=== PATIENT | female | born 1960 | race Caucasian/White ===

== ENCOUNTER 2018-02-01 15:34 | Emergency (ER) | payer BC, OTHER ==
[2018-02-01 15:58] LABS: APPEARANCE,URINE CLOUDY (CLEAR); BASOPHILS % (AUTO) 0.6 % (0.0-5.0); BILIRUBIN,URINE MODERATE (NEGATIVE); COLOR,URINE YELLOW (YELLOW); EOSINOPHILS % (AUTO) 0.1 % (0.0-8.0); GLUCOSE, URINE (UA) NEGATIVE (NEGATIVE); HEMATOCRIT 49.4 % (36-48); KETONES,URINE 40 mg/dL (NEGATIVE); LEUKOCYTE ESTERASE ,URINE NEGATIVE (NEGATIVE); LYMPHOCYTES % (AUTO) 8.7 % (21.0-51.0); MEAN CORPUSCULAR HEMOGLOBIN 34.2 pg (27.0-33.0); MEAN CORPUSCULAR HGB CONC 35.1 g/dL (32.0-36.0); MEAN CORPUSCULAR VOLUME 97.5 fL (79-99); MONOCYTES % (AUTO) 9.8 % (3.0-13.0); NEUTROPHILS % (AUTO) 80.8 % (40.0-77.0); NITRATE,URINE NEGATIVE (NEGATIVE); NUCLEATED RED BLOOD CELLS 0.1 % (0.0-0.19); OCCULT BLOOD,URINE MODERATE (NEGATIVE); PLATELET COUNT (AUTO) 279 K/uL (130-400); PROTEIN,URINE 30 (NEGATIVE); RED BLOOD CELL COUNT(AUTO) 5.07 MIL/uL (4.00-5.50); RED CELL DISTRIBUTION WIDTH 13.3 % (11.0-15.5); UROBILINOGEN,URINE 0.2 mg/dL (0.2-1.0); WHITE BLOOD COUNT (AUTO) 10.6 K/uL (4.8-10.8)
[2018-02-01 16:09] LABS: BACTERIA,URINE Few /HPF (None Seen); CREATININE 1.1 mg/dL (0.5-1.5); MUCUS,URINE Few LPF (None Seen); POTASSIUM 4.7 mmol/L (3.5-5.1); SQUAMOUS EPITHELIAL CELL,UR Moderate /HPF (0-2)
[2018-02-01 16:14] LABS: ALBUMIN 3.6 g/dL (3.5-5.0); BILIRUBIN,TOTAL 0.5 mg/dL (0.2-1.0)
[2018-02-01] MEDS ORDERED: FAMOTIDINE/PF 20 MG/2 ML VIAL IV ONE (16:25)
[2018-02-01] MEDS ORDERED: HYOSCYAMINE SULFATE 0.125 MG TAB.SUBL SL ONE (16:25)
[2018-02-01 19:44] LABS: OCCULT BLOOD STOOL SINGLE ONLY POSITIVE (NEGATIVE)
== END 2018-02-01 21:23 | disposition home or self-care (01) ==
LOC: EDH 15:34
DX: A09 Infectious gastroenteritis and colitis, unspecified (principal); E86.0 Dehydration; F12.10 Cannabis abuse, uncomplicated; Z88.0 Allergy status to penicillin; Z72.0 Tobacco use
CPT/HCPCS: 36415; 71046; 74176; 80053; 81001; 82270; 83690; 85025; 87046; 87324; 93005; 96361; 96365; 99284; J3490

== ENCOUNTER 2024-02-29 11:16 | Emergency (ER) | payer BC ==
[~2024-02-29] VITALS: Ht 157.5 cm; Wt 37.6 kg
--- NOTE | 2024-02-29 11:39 | ERN ---
ED Note History of Present Illness Stated Complaint: BLOOD IN URINE Chief Complaint: Blood in Urine: Time Seen by MD: 11:32 Dictation: PATIENT IS A 63-YEAR-OLD FEMALE HERE SENT BY HER PRIMARY CARE DOCTOR WITH COMPLAINTS OF GROSSLY HEMATURIA URINE ONSET YESTERDAY. NO FEVER NO CHILLS NO NAUSEA VOMITING. SHE STATES HER DOCTOR HAS BEEN TREATING HER FOR UTI WITH CEPHALEXIN AND INJECTIONS AT HER OFFICE. SHE WAS SENT TO THE EMERGENCY ROOM TODAY BECAUSE SHE WAS CONCERNED FOR SEPSIS ACCORDING TO THE PRIMARY CARE DOCTOR. Allergies: Coded Allergies: No Known Drug Allergies (Verified Allergy, Unknown, 02/29/24) Penicillins (Unverified Allergy, Unknown, 02/29/24) Past Medical History Past Medical History: No Pertinent History Surgical History: None History: Not Applicable RN Note Reviewed/Agreed w/PFSH: Yes Review of System Dictation CONSTITUTIONAL: NEGATIVE EXCEPT FOR HPI HEAD/FACE: NEGATIVE EXCEPT FOR HPI EENT: NEGATIVE EXCEPT FOR HPI RESPIRATORY: NEGATIVE EXCEPT FOR HPI GASTROINTESTINAL/ABDOMINAL: NEGATIVE EXCEPT FOR HPI GENITOURINARY: NEGATIVE EXCEPT FOR HPI HEMATURIA MUSCULOSKELETAL: NEGATIVE EXCEPT FOR HPI INTEGUMENTARY: NEGATIVE EXCEPT FOR HPI NEUROLOGICAL/PSYCH: NEGATIVE EXCEPT FOR HPI HEMATOLOGIC/LYMPHATIC: NEGATIVE EXCEPT FOR HPI ALL SYSTEMS NEGATIVE, EXCEPT NOTED ABOVE. 13 POINT REVIEW OF SYSTEMS ASSESSED AND ALL NEGATIVE EXCEPT FOR ABOVE. Initial Vital Sign VS Vital Signs Date Time Temp Pulse Resp B/P (MAP) Pulse Ox O2 Delivery O2 Flow Rate FiO2 02/29/24 11:30 97.5 111 18 114/72 99 Room Air Physical Exam Dictation VITAL SIGNS REVIEWED GENERAL APPEARANCE: ALERT, ORIENTED X 3, MILD ACUTE DISTRESS, WELL DEVELOPED, NOURISHED. HEAD AND FACE: NON-TRAUMATIC. EYES: PERRL, PINK CONJUNCTIVAS, EYELID NO TRAUMA, ANTERIOR CHAMBER WITH ARCUS SENILIS. EARS: PINNAS INTACT AND NO SIGNS OF TRAUMA OR ERYTHEMA EAR CANALS CLEAR AND NO DISCHARGE TM NO ERYTHEMA NOSE: NO DISCHARGE, NO BLEEDING. OROPHARYNX: MOUTH NORMAL, TONGUE PINK, PHARYNX CLEAR,NO ERYTHEMA, TONSILS NO EXUDATES, NO ABSCESSES NOTED, MUCOUS MEMBRANE MOIST NECK: SUPPLE, NON-TENDER, NO THYROMEGALY, NO MASSES, NO JVD, NO BRUITS BREAST:DEFERRED CHEST:NO TENDERNESS, NO CREPITUS, NO PARADOXICAL MOVEMENT, NO RETRACTIONS LUNGS:CLEAR, WELL-VENTILATED, SYMMETRIC, NO RALES, NO WHEEZING, NO RHONCHI, NO STRIDOR, GOOD BREATH SOUNDS BILATERALLY HEART: REGULAR RATE, REGULAR RHYTHM, NO MURMUR, NO GALLOPS VASCULAR: NO PERIPHERAL EDEMA, ABDOMEN: SOFT, POSITIVE BOWEL SOUNDS, NONDISTENDED, NO GUARDING, NONTENDER, NO REBOUND, NO MASSES NO HEPATOMEGALY, NO SPLENOMEGALY, NO GARCIA'S SIGN, NO HERNIAS. RECTAL: DEFERRED GENITAL: DEFERRED NEUROLOGICAL: NORMAL SPEECH, MOTOR FUNCTION INTACT, SENSORY FUNCTION INTACT MUSCULOSKELETAL: NECK NONTENDER, FULL RANGE OF MOTION, BACK NONTENDER, FULL RANGE OF MOTION, EXTREMITIES: NONTENDER, FULL RANGE OF MOTION SKIN: COLOR PINK, DRY, NO TURGOR, NO RASH, NO LACERATIONS, NO ABRASIONS, NO CONTUSIONS. LYMPHATIC: DEFERRED Results (Laboratory/Radiology) Laboratory/Radiology Laboratory Tests Test 02/29/24 11:42 02/29/24 11:52 Urine Color RED (YELLOW) Urine Appearance CLOUDY (CLEAR) H Urine pH 6.5 (5.0-8.0) Urine Specific [place]ill 1.007 (1.001-1.031) Urine Protein 200 mg/dL (NEGATIVE) H Urine Glucose (UA) NEGATIVE mg/dL (NEGATIVE) Urine Ketones NEGATIVE mg/dL (NEGATIVE) Urine Occult Blood LARGE (NEGATIVE) H Urine Nitrate NEGATIVE (NEGATIVE) Urine Bilirubin NEGATIVE mg/dL (NEGATIVE) Urine Urobilinogen 0.2 mg/dL (0.2-1.0) Urine Leukocyte Esterase 25 Traci/uL (NEGATIVE) H Urine RBC TNTC /HPF (0-1) H Urine WBC TNTC /HPF (0-1) H Urine WBC Clumps (Auto) MANY /HPF (0-1) Urine Other Crystals (Auto) 32 /HPF (None Seen) Urine Bacteria FEW /HPF (None Seen) Urine Other Casts 18 /LPF (None Seen) Urine Yeast FEW /HPF (None Seen) White Blood Count 7.7 K/uL (4.8-10.8) Red Blood Count 3.93 MIL/uL (4.00-5.50) L Hemoglobin 13.3 g/dL (12.0-16.0) Hematocrit 38.8 % (36-48) Mean Corpuscular Volume 98.7 fL (79-99) Mean Corpuscular Hemoglobin 33.8 pg (27.0-33.0) H Mean Corpuscular Hemoglobin Concent 34.3 g/dL (32.0-36.0) Red Cell Distribution Width 12.8 % (11.0-15.5) Platelet Count 283 K/uL (130-400) Mean Platelet Volume 9.4 fL (7.5-10.5) Immature Granulocyte % (Auto) 0.3 % (0-1) Neutrophils (%) (Auto) 66.7 % (40.0-77.0) Lymphocytes (%) (Auto) 26.5 % (21.0-51.0) Monocytes (%) (Auto) 5.5 % (3.0-13.0) Eosinophils (%) (Auto) 0.3 % (0.0-8.0) Basophils (%) (Auto) 0.7 % (0.0-5.0) Neutrophils # (Auto) 5.1 K/uL (1.8-7.7) Lymphocytes # (Auto) 2.0 K/uL (1.0-4.8) Monocytes # (Auto) 0.4 K/uL (0.1-1.0) Eosinophils # (Auto) 0.02 K/uL (0.00-0.70) Basophils # (Auto) 0.05 K/uL (0.00-0.20) Absolute Immature Granulocyte (auto 0.02 K/uL (0-1) Nucleated Red Blood Cells 0.0 % (0.0-0.19) Sodium Level 138 mmol/L (136-145) Potassium Level 3.4 mmol/L (3.5-5.1) L Chloride Level 101 mmol/L (101-111) Carbon Dioxide Level 31 mmol/L (21-32) Blood Urea Nitrogen 11 mg/dL (7-18) Creatinine 0.7 mg/dL (0.5-1.0) Glomerular Filtration Rate Calc 98 mL/min (>90) Random Glucose 119 mg/dL (70-105) H Lactic Acid Level 1.6 mmol/L (0.8-2.5) Total Calcium 8.6 mg/dL (8.5-10.1) Labs Reviewed?: Yes ED Course ED Course Orders Procedure Category Date Status Time Cbc With Differential LAB 02/29/24 Complete 11:37 Blood Cult GARCIA 02/29/24 In Process 11:37 Urinalysis Profile LAB 02/29/24 Complete 11:37 Lactic Acid LAB 02/29/24 Complete 11:37 Basic Metabolic Panel LAB 02/29/24 Complete 11:37 Culture Urine GARCIA 02/29/24 In Process 12:41 Levofloxacin 750mg PHA 02/29/24 Complete Tab (Levaquin 750mg T 12:44 Phenazopyridine Hcl PHA 02/29/24 Complete 200 Mg Tab (Pyridium 13:00 Potassium Bicarb/Cit PHA 02/29/24 Verified Ac 25meq (K-Lyte Ta 14:30 Current Medications Medications (Trade) Dose Ordered Sig/Aydee Route PRN Reason Start Time Stop Time Status Last Admin Dose Admin Levofloxacin (LEvaquIN 750MG TAB) 750 mg ONCE STAT PO 02/29/24 12:44 02/29/24 12:46 DC 02/29/24 13:05 Phenazopyridine HCl (PYRIdium HCL 200 MG TAB) 200 mg ONCE ONCE PO 02/29/24 13:00 02/29/24 13:01 DC 02/29/24 13:05 Vital Signs Date Time Temp Pulse Resp B/P (MAP) Pulse Ox O2 Delivery O2 Flow Rate FiO2 02/29/24 11:30 97.5 111 18 114/72 99 Room Air 1400/PATIENT HEMODYNAMICALLY STABLE NO SIGNS OF SEPSIS. PATIENT WILL BE DISCHARGED HOME ON LEVAQUIN AND PYRIDIUM INSTRUCTED TO FOLLOW UP WITH UROLOGIST IN THE NEXT 2-3 DAYS CALL FOR AN APPOINTMENT. Medical Decision Making MDM MEDICAL DISCHARGE MAKING BASED ON BASIC LABS AND URINALYSIS. NO ELEVATED LACTIC ACID, WHITE COUNT NORMAL. PATIENT WAS BE TREATED FOR ACUTE CYSTITIS WITH HEMATURIA WITH LEVAQUIN AND PYRIDIUM ADDITIONALLY POTASSIUM 3.4, WE WILL REPLACE. PATIENT REFERRED TO UROLOGY AND WE WILL BE DISCHARGED HOME WITH LEVAQUIN DX & DISP Disposition: Discharge Departure Impression: Primary Impression: Acute cystitis with hematuria Additional Impression: Hypokalemia Condition: Stable Scripts Phenazopyridine HCl (Pyridium) 200 Mg Tab 1 TAB PO TID for urinary discomfort for 3 Days, #9 TAB 0 Refills after food Prov: LAZARO CERNA AQUATIC PHYSIOTHERAPIST 02/29/24 Levofloxacin (Levofloxacin) 500 Mg Tablet 1 TAB PO DAILY for 10 Days, #10 TAB 0 Refills Prov: LAZARO CERNA AQUATIC PHYSIOTHERAPIST 02/29/24 Additional Instructions: FOLLOW-UP WITH PRIMARY CARE PROVIDER IN 1 TO 2 DAYS. TAKE MEDICATIONS DIRECTED HERE IN THE EMERGENCY ROOM. OKAY TO CONTINUE HOME MEDICATIONS UNLESS OTHERWISE DISCUSSED DURING YOUR VISIT IN THE EMERGENCY ROOM TODAY. RETURN TO YOUR NEAREST EMERGENCY ROOM IF SYMPTOMS WORSEN OR IF THERE IS NO IMPROVEMENT. CALL 911 IF YOU NEED IMMEDIATE ASSISTANCE. TAKE TYLENOL OR MOTRIN [id number] NEEDED AND IF NO CONTRAINDICATIONS ARE PRESENT. INCREASE ORAL HYDRATION. A WOUND CULTURE OR URINE CULTURE WAS ORDERED HERE IN THE EMERGENCY ROOM DEPARTMENT PLEASE FOLLOW-UP WITH PRIMARY CARE PROVIDER AND ADVISE THEM TO GET REPEAT PORTS FROM OUR FACILITY. IF YOU HAD ANY LISA WRAP/SPLINTS THAT WERE APPLIED HERE, PLEASE DO NOT REMOVE THEM UNTIL YOU SEE YOUR PRIMARY CARE OR SPECIALTY. TAKE ANTIBIOTICS DIRECTED UNTIL GONE, INCREASE YOUR WATER INTAKE. REMEMBER THE PYRIDIUM WILL TURN YOUR URINE ORANGE RED. CALL UROLOGIST FOR APPOINTMENT IN THE NEXT 1-2 DAYS. Referrals: SELF,REFERRAL (PCP) DC TODD MD Time of Disposition: 14:03 I have reviewed the case, and I agree with, Diagnosis and Plan LAZARO CERNA NP Feb 29, 2024 11:39
[2024-02-29 12:04] LABS: BASOPHILS # (AUTO) 0.05 K/uL (0.00-0.20); BASOPHILS % (AUTO) 0.7 % (0.0-5.0); EOSINOPHILS # (AUTO) 0.02 K/uL (0.00-0.70); EOSINOPHILS % (AUTO) 0.3 % (0.0-8.0); HEMATOCRIT 38.8 % (36-48); IMMATURE GRANULOCYTE ABSOLUTE 0.02 K/uL (0-1); LYMPHOCYTES % (AUTO) 26.5 % (21.0-51.0); MEAN CORPUSCULAR HEMOGLOBIN 33.8 pg (27.0-33.0); MEAN CORPUSCULAR HGB CONC 34.3 g/dL (32.0-36.0); MEAN CORPUSCULAR VOLUME 98.7 fL (79-99); MONOCYTES # (AUTO) 0.4 K/uL (0.1-1.0); MONOCYTES % (AUTO) 5.5 % (3.0-13.0); NEUTROPHILS # (AUTO) 5.1 K/uL (1.8-7.7); NEUTROPHILS % (AUTO) 66.7 % (40.0-77.0); PLATELET COUNT (AUTO) 283 K/uL (130-400); RED BLOOD CELL COUNT(AUTO) 3.93 MIL/uL (4.00-5.50); RED CELL DISTRIBUTION WIDTH 12.8 % (11.0-15.5); WHITE BLOOD COUNT (AUTO) 7.7 K/uL (4.8-10.8)
[2024-02-29 12:18] LABS: CREATININE 0.7 mg/dL (0.5-1.0); POTASSIUM 3.4 mmol/L (3.5-5.1)
[2024-02-29 12:36] LABS: APPEARANCE,URINE CLOUDY (CLEAR); BILIRUBIN,URINE NEGATIVE (NEGATIVE); COLOR,URINE RED (YELLOW); GLUCOSE, URINE (UA) NEGATIVE (NEGATIVE); KETONES,URINE NEGATIVE (NEGATIVE); LEUKOCYTE ESTERASE ,URINE 25 Leu/uL (NEGATIVE); NITRATE,URINE NEGATIVE (NEGATIVE); OCCULT BLOOD,URINE LARGE (NEGATIVE); PH,URINE 6.5 (5.0-8.0); PROTEIN,URINE 200 mg/dL (NEGATIVE); UROBILINOGEN,URINE 0.2 mg/dL (0.2-1.0)
[2024-02-29 12:37] LABS: ADD UA MICROSCOPIC YES
[2024-02-29 12:39] LABS: BACTERIA,URINE FEW /HPF (None Seen); OTHER CASTS, URINE 18 /LPF (None Seen); RBC,URINE TNTC /HPF (0-1); UNCLASSIFIED CRYSTAL 32 /HPF (None Seen); WBC CLUMP MANY /HPF (0-1); WBC,URINE TNTC /HPF (0-1); YEAST,URINE BUDDING FEW /HPF (None Seen)
[2024-02-29] MEDS: PHENAZOpyridine HCL 200 MG TAB 200 MG TABLET PO ONE (13:05)
[2024-02-29] MEDS: levoFLOXacin 750 MG TABLET PO STA (13:05)
[2024-02-29] MEDS ORDERED: LEVO-70 PO (14:04)
[2024-02-29] MEDS ORDERED: PHEN-847 PO (14:04)
[2024-02-29] MEDS: PoTASSium BIcarbonate/CIT AC 25 MEQ TABLET.EFF PO ONE (14:11)
[2024-02-29 14:13] VITALS: BP 124/68; PULSE 92; RESP 18; TEMP 97.5; O2SAT 98
== END 2024-02-29 14:19 | disposition home or self-care (01) ==
LOC: EDH 11:16
DX: N30.01 Acute cystitis with hematuria (principal); E87.6 Hypokalemia; Z88.0 Allergy status to penicillin
CPT/HCPCS: 36415; 80048; 81001; 83605; 85025; 87040; 87086; 99283